=== PATIENT | female | born 1985 | race Caucasian/White ===

== ENCOUNTER 2019-06-17 18:42 | Emergency (ER) | payer BC | END 2019-06-17 22:25 | disposition home or self-care (01) | LOC: FTE 18:42 | DX: S09.90XA Unspecified injury of head, initial encounter (principal); R42 Dizziness and giddiness; W22.03XA Walked into furniture, initial encounter; Y92.9 Unspecified place or not applicable | CPT/HCPCS: 70450; 81025; 99284-25 ==